=== PATIENT | female | born 1970 | race Caucasian/White ===

== ENCOUNTER 2025-01-11 15:06 | Emergency (ER) | payer BC ==
[~2025-01-11] VITALS: Ht 160 cm; Wt 65.0 kg
[2025-01-11 15:12] VITALS: O2SAT 100
[2025-01-11] MEDS: IBUPROFEN 600MG TABLET PO ONE (15:50)
[2025-01-11] MEDS ORDERED: IBUP-1455 MT (16:37)
[2025-01-11] MEDS ORDERED: CYCL10TA21 MT (16:37)
[2025-01-11 17:00] VITALS: BP 120/66; PULSE 66; RESP 18; TEMP 36.8; O2SAT 99
== END 2025-01-11 17:35 | disposition home or self-care (01) ==
LOC: ER 15:06
DX: S20.229A Contusion of unspecified back wall of thorax, initial encounter (principal); I10 Essential (primary) hypertension; E78.00 Pure hypercholesterolemia, unspecified; X58.XXXA Exposure to other specified factors, initial encounter; Y93.89 Activity, other specified; Y92.89 Other specified places as the place of occurrence of the external cause; Y99.8 Other external cause status
CPT/HCPCS: 72070; 72100; 99284